=== PATIENT | female | born 1950 | race Asian ===

== ENCOUNTER 2019-12-06 11:35 | Inpatient (IN) | payer OTHER ==
[~2019-12-06] VITALS: Ht 160 cm; Wt 45.4 kg
[2019-12-06 11:42] VITALS: Ht 160 cm; Wt 45.4 kg
[2019-12-06 12:50] LABS: BILIRUBIN TOTAL 0.74 mg/dL (0.20-1.00); CALCIUM 9.6 mg/dL (8.5-10.1); CARBON DIOXIDE 26.4 mmol/L (21-32); CREATININE SERUM 2.7 mg/dL (0.6-1.0); POTASSIUM SERUM 5.5 mmol/L (3.5-5.1); TOTAL PROTEIN, SERUM 6.9 g/dL (6.4-8.2)
[2019-12-06 12:51] LABS: PLATELET COUNT 266 x10^3mcL (130-400); RED CELL DISTRIBUTION WIDTH 13.1 % (11.5-14.5)
[2019-12-06 12:52] LABS: ALBUMIN 3.2 g/dL (3.4-5.0); BASOPHIL % 0.4 % (0-2)
[2019-12-06] MEDS ORDERED: NOR10 PO (14:24)
[2019-12-06] MEDS ORDERED: DUL10S RC (14:24)
[2019-12-06] MEDS ORDERED: BACLOFEN10 MG PO (14:24)
[2019-12-06] MEDS ORDERED: ZESTRIL5 MG PO (14:25)
[2019-12-06] MEDS ORDERED: MELATONIN3 MG PO (14:25)
[2019-12-06] MEDS ORDERED: NEU300 PO (14:25)
[2019-12-06] MEDS ORDERED: KEPPRA500 MG PO (14:25)
[2019-12-06] MEDS ORDERED: TRA50 PO (14:26)
[2019-12-06] MEDS ORDERED: MORPHINE SULFAT15 M7 PO (14:27)
[2019-12-06] MEDS ORDERED: PERCOCET1 TAB PO (14:28)
[2019-12-06] MEDS ORDERED: OXYBUTYNIN CHLO10 MG PO (14:28)
[2019-12-06] MEDS ORDERED: NORCO1 TA2 PO (14:28)
[2019-12-06 15:53] LABS: microscopic required? YES; urine erythrocyte TRACE (NEGATIVE)
[2019-12-06 16:50] VITALS: BP 101/59
[2019-12-06 20:55] VITALS: BP 130/71
[2019-12-07 05:12] VITALS: BP 98/63
[2019-12-07 08:47] VITALS: BP 135/77
[2019-12-07 11:55] LABS: BASOPHIL % 0.3 % (0-2); PLATELET COUNT 241 x10^3mcL (130-400); RED CELL DISTRIBUTION WIDTH 12.8 % (11.5-14.5)
[2019-12-07 12:30] LABS: CALCIUM 8.9 mg/dL (8.5-10.1); CREATININE SERUM 1.2 mg/dL (0.6-1.0); MAGNESIUM 1.9 mg/dL (1.8-2.4); PHOSPHOROUS 2.3 mg/dL (2.5-4.9); POTASSIUM SERUM 3.6 mmol/L (3.5-5.1)
[2019-12-07 12:59] VITALS: BP 142/85
[2019-12-07 17:14] VITALS: BP 137/81
[2019-12-07 20:28] VITALS: BP 115/78
[2019-12-08 05:13] VITALS: BP 138/82
[2019-12-08 08:13] VITALS: BP 135/82
[2019-12-08 09:03] LABS: BASOPHIL % 0.3 % (0-2); PLATELET COUNT 254 x10^3mcL (130-400); RED CELL DISTRIBUTION WIDTH 12.7 % (11.5-14.5)
[2019-12-08 09:18] LABS: CALCIUM 9.2 mg/dL (8.5-10.1); CARBON DIOXIDE 25.9 mmol/L (21-32); CHLORIDE SERUM 104 mmol/L (98-107); CREATININE SERUM 0.9 mg/dL (0.6-1.0); GFR1 > 60 mL/min; GLUCOSE SERUM 135 mg/dL (74-106); MAGNESIUM 1.7 mg/dL (1.8-2.4); PHOSPHOROUS 2.5 mg/dL (2.5-4.9); POTASSIUM SERUM 3.4 mmol/L (3.5-5.1); SODIUM SERUM 141 mmol/L (136-145)
[2019-12-08 12:38] VITALS: BP 131/77
[2019-12-08 17:32] VITALS: BP 133/77
[2019-12-08 19:34] VITALS: BP 148/88
[2019-12-09 04:14] VITALS: BP 145/89
[2019-12-09 06:29] LABS: BASOPHIL % 0.2 % (0-2); PLATELET COUNT 271 x10^3mcL (130-400); RED CELL DISTRIBUTION WIDTH 12.6 % (11.5-14.5)
[2019-12-09 07:09] LABS: CALCIUM 9.9 mg/dL (8.5-10.1); CARBON DIOXIDE 23.1 mmol/L (21-32); CHLORIDE SERUM 101 mmol/L (98-107); CREATININE SERUM 0.8 mg/dL (0.6-1.0); GFR1 > 60 mL/min; GLUCOSE SERUM 123 mg/dL (74-106); POTASSIUM SERUM 3.5 mmol/L (3.5-5.1); SODIUM SERUM 134 mmol/L (136-145)
[2019-12-09 08:05] VITALS: BP 142/95
[2019-12-09 14:32] VITALS: BP 141/85
[2019-12-09 17:49] VITALS: BP 128/71
[2019-12-09 21:07] VITALS: BP 141/76
[2019-12-10 05:28] VITALS: BP 138/86
[2019-12-10 07:03] LABS: BASOPHIL % 0.4 % (0-2); PLATELET COUNT 313 x10^3mcL (130-400); RED CELL DISTRIBUTION WIDTH 12.9 % (11.5-14.5)
[2019-12-10 07:36] LABS: CALCIUM 9.8 mg/dL (8.5-10.1); CARBON DIOXIDE 23.3 mmol/L (21-32); CHLORIDE SERUM 105 mmol/L (98-107); CREATININE SERUM 0.9 mg/dL (0.6-1.0); GFR1 > 60 mL/min; GLUCOSE SERUM 111 mg/dL (74-106); POTASSIUM SERUM 3.5 mmol/L (3.5-5.1); SODIUM SERUM 141 mmol/L (136-145)
[2019-12-10 08:20] VITALS: BP 125/74
[2019-12-10 12:26] VITALS: BP 124/71
[2019-12-10 18:01] VITALS: BP 148/81
[2019-12-10 20:24] VITALS: BP 149/80
[2019-12-11 05:58] VITALS: BP 158/80
[2019-12-11 06:57] LABS: BASOPHIL % 0.4 % (0-2); PLATELET COUNT 308 x10^3mcL (130-400); RED CELL DISTRIBUTION WIDTH 12.6 % (11.5-14.5)
[2019-12-11 07:19] LABS: CALCIUM 9.3 mg/dL (8.5-10.1); CHLORIDE SERUM 107 mmol/L (98-107); CREATININE SERUM 0.9 mg/dL (0.6-1.0); GFR1 > 60 mL/min; GLUCOSE SERUM 98 mg/dL (74-106); POTASSIUM SERUM 3.4 mmol/L (3.5-5.1); SODIUM SERUM 143 mmol/L (136-145)
[2019-12-11 09:00] VITALS: BP 139/86
[2019-12-11] MEDS ORDERED: ULT50 PO (11:33)
[2019-12-11 13:00] VITALS: BP 127/72
[2019-12-11 14:45] VITALS: BP 127/72
== END 2019-12-11 15:58 | DRG 871 ==
LOC: ED 11:35 → DU 15:01
PROVIDERS: Student in an Organized Health Care Education/Training Program; ADMIT Family Medicine
DX: A41.9 Sepsis, unspecified organism (principal); G92 Toxic encephalopathy; N17.0 Acute kidney failure with tubular necrosis; J96.21 Acute and chronic respiratory failure with hypoxia; J96.22 Acute and chronic respiratory failure with hypercapnia; N39.0 Urinary tract infection, site not specified; I69.354 Hemiplegia and hemiparesis following cerebral infarction affecting left non-dominant side; K56.7 Ileus, unspecified; T40.2X1A Poisoning by other opioids, accidental (unintentional), initial encounter; R65.20 Severe sepsis without septic shock; D63.8 Anemia in other chronic diseases classified elsewhere; Z66 Do not resuscitate; E87.5 Hyperkalemia; I12.9 Hypertensive chronic kidney disease with stage 1 through stage 4 chronic kidney disease, or unspecified chronic kidney disease; N18.9 Chronic kidney disease, unspecified; G89.29 Other chronic pain; Z93.1 Gastrostomy status; Z88.2 Allergy status to sulfonamides; Z98.1 Arthrodesis status; Z87.891 Personal history of nicotine dependence; Y92.128 Other place in nursing home as the place of occurrence of the external cause; Z79.899 Other long term (current) drug therapy
CPT/HCPCS: 36600; 82962; 87804; 97110-GP; 97116-GP; 97530-GP; G0378; J1200; J1956; J2310; J2543; J3370; J7030; J7620; Q0092; Q0163